=== PATIENT | female | born 1985 | race Caucasian/White ===

== ENCOUNTER 2019-10-15 17:40 | Inpatient (IN) | payer MEDICAID, SELFPAY ==
[2019-10-15] VITALS (97 sets, daily range): BP systolic 0–129; BP diastolic 0–72; PULSE 61–98; RESP 15–18; TEMP 36.6–37; O2SAT 96–99; BMI 25.1
[2019-10-15 08:27] LABS: Basophils % 0.3 %; Eosinophils # 0.1 10^3/uL (0.0-0.8); Eosinophils % 0.6 %; Hematocrit 33.2 % (37.0-47.0); Hemoglobin 11.1 g/dL (11.5-15.3); Lymphocytes # 1.9 10^3/uL (0.8-4.8); Lymphocytes % 15.8 %; Mean Corpuscular HGB Conc 33.4 g/dL (30.0-36.0); Mean Corpuscular Hemoglobin 32.6 pg (28.0-34.0); Mean Corpuscular Volume 97.6 fL (81-99); Mean Platelet Volume 10.6 fL (7.4-10.4); Monocytes % 8.4 %; Neutrophils # 8.6 10^3/uL (1.8-7.7); Nucleated Red Blood Cells % 0 %; Platelet Count 204 10^3/cmm (130-400); Red Cell Distribution Width 13.3 % (12.1-15.1); White Blood Count 11.9 10^3/uL (4.0-10.0)
[2019-10-15] MEDS: oxytocin 30 UNIT/500 ML BAG IV (08:40)
[2019-10-15] MEDS: lactated ringers 1,000 ML 125 ML IV (08:44)
[2019-10-15] MEDS: alum-mag-hydroxide-sime 30 mL UDC PO ×2 (08:44→12:42)
[2019-10-15] MEDS: fentaNYL 50 mcg/mL INJ 2mL IV (11:28)
[2019-10-15] MEDS: lactated ringers 1,000 ML 999 ML IV (11:37)
--- NOTE | 2019-10-15 12:29 | P.ANES_ITS ---
Pre-Anesthetic Assessment Pre-Anesthetic Assessment: Height/Weight: Height 1.75 m Weight 77.111 kg Temp Pulse Resp BP Pulse Ox 98 F 66 16 105/52 99 10/15/19 11:08 10/15/19 12:25 10/15/19 11:28 10/15/19 12:25 10/15/19 12:23 Was Beta Raulito taken within 24 hours: N/A Last Intake: 06:00 Social: Social History: Tobacco and No alcohol Exam: Pre-Anes Outpt Exam: alert, oriented x 3, clear to auscultation bi laterally and regular rate & rhythm Airway: Submandibular: WNL Cervical ROM: WNL MP: 2 Dentition: Full Pulmonary: Pulmonary: None reported CV/HEM: CV/HEM: None reported : : None reported GI: GI: GERD Metabolic: Metabolic: None reported Musc/skel: Musc/skel: None reported Neuropsych: Neuropsych: Bipolar Anesthetic Plan: ASA status: II Anesthesia: Anesthesia Evaluation and Regional (specify below) Risk of > 500 ml blood loss (7ml/kg in children): No Meds/Allergies Current Medications: Current Medications Generic Name Dose Route Start Last Admin Trade Name Freq PRN Reason Stop Dose Admin Al Hydrox/Mg Hecker x/Simethicone 30 ml 10/15/19 07:59 10/15/19 08:44 Maalox PO 30 ml Q4H PRN Administration INDIGESTION Fentanyl 25 - 100 mcg 10/15/19 10:59 10/15/19 11:28 Sublimaze IV 25 mcg Q1H PRN Administration SEVERE PAIN Lactated Ringer's 1,000 mls @ 999 m ls/hr 10/15/19 07:59 10/15/19 10:56 Lactated Ringers IV 999 mls/hr .Q1H1M PRN Infusion Per L&D Rescitati on Protocol Oxytocin 30 unit in 500 ml s @ 1 mls/hr 10/15/19 08:00 10/15/19 10:45 Pitocin IV 17 milliunit/min .Q24H JEANNETTE 17 mls/hr Titration Protocol 1 MILLIUNIT/MIN PFSH Anesthesia Female Reproductive History: : 5 Data Anesthesia CBC & Chem 7: 10/15/19 07:45 Other Labs: Laboratory Results - last 48 hr 10/15/19 07:45 WBC 11.9 H RBC 3.40 L Hgb 11.1 L Hct 33.2 L MCV 97.6 MCH 32.6 MCHC 33.4 RDW 13.3 Plt Count 204 MPV 10.6 H Neut % (Auto) 72.0 Lymph % (Auto) 15.8 [place] % (Auto) 8.4 Eos % (Auto) 0.6 Baso % (Auto) 0.3 Neut # (Auto) 8.6 H Lymph # (Auto) 1.9 [place] # (Auto) 1.0 H Eos # (Auto) 0.1 Baso # (Auto) 0.0 Nucleated RBC % (auto) 0 Nucleated RBCs # 0.0 Cardiac Studies: No Data to Display
--- NOTE | 2019-10-15 12:32 | P.ANES_ITS ---
Anesthesia Procedures Procedure/Date: 10/15/19
--- NOTE | 2019-10-15 12:32 | ANES.PROC ---
Anesthesia Procedures Procedure/Date: 10/15/19
--- NOTE | 2019-10-15 12:32 | ANES.PROC ---
Anesthesia Procedures Procedure/Date: 10/15/19 Epidural: Time Out Performed: Yes Consents Signed: Procedure Consent and NPO Consent Consent: from patient, risks and benefits reviewed and patient agrees to proceed Lumbar Level: L3-L4 Epidural position: sitting Epidural procedure: sterile prep of area, 1% lidocaine to numb the area, 18 g needle, negative for paresthesia passed, neg for paresthesia, test dose given, 1.5% xylocaine 1:200k epi, placed PCEA, no systemic response, sterile dressing applied, L.U.D. no apparent complications and 0.2% Ropiavacaine @ mls/hr Additional Comments: Bupiv 0.25% 8cc and 100 Fentanyl bolus
[2019-10-15] MEDS: dextrose 5%-lactated ringers 1,000 ML 125 ML IV ×2 (12:42→14:50)
--- NOTE | 2019-10-15 13:15 | ANES.PREANES ---
Pre-Anesthetic Assessment Pre-Anesthetic Assessment: Height/Weight: Height 1.75 m Weight 77.111 kg Temp Pulse Resp BP Pulse Ox 98 F 64 16 96/41 98 10/15/19 11:08 10/15/19 13:13 10/15/19 11:28 10/15/19 13:13 10/15/19 12:33 Preop Diagnosis: labor Pain Proposed Procedure: epidural Was Beta Raulito taken within 24 hours: N/A Social: Social History: No alcohol and No tobacco Exam: Pre-Anes Outpt Exam: alert, oriented x 3, clear to auscultation bilaterally and regular rate & rhythm Airway: Submandibular: WNL Cervical ROM: WNL MP: 1 Dentition: Full History/ROS: No significant history except as noted and No significant complaints Pulmonary: Pulmonary: Asthma Comments: slightly worse lately. using inhaler more frequently CV/HEM: CV/HEM: None reported : : None reported Hepatic: Hepatic: None reported GI: GI: None reported Metabolic: Metabolic: None reported Musc/skel: Musc/skel: None reported Neuropsych: Neuropsych: None reported Anesthetic Plan: ASA status: II Anesthesia: Regional (specify below) Other: labor Epidural Risk of > 500 ml blood loss (7ml/kg in children): No Meds/Allergies Current Medications: Current Medications Generic Name Dose Route Start Last Admin Trade Name Freq PRN Reason Stop Dose Admin Al Hydrox/Mg Graham x/Simethicone 30 ml 10/15/19 07:59 10/15/19 12:42 Maalox PO 30 ml Q4H PRN Administration INDIGESTION Fentanyl 25 - 100 mcg 10/15/19 10:59 10/15/19 11:28 Sublimaze IV 25 mcg Q1H PRN Administration SEVERE PAIN Lactated Ringer's 1,000 mls @ 999 m ls/hr 10/15/19 07:59 10/15/19 11:37 Lactated Ringers IV Infused .Q1H1M PRN Infusion Per L&D Rescitati on Protocol Oxytocin 30 unit in 500 ml s @ 1 mls/hr 10/15/19 08:00 10/15/19 10:45 Pitocin IV 17 milliunit/min .Q24H JEANNETTE 17 mls/hr Titration Protocol 1 MILLIUNIT/MIN Dextrose/Lactated Ringer's 1,000 mls @ 125 m ls/hr 10/15/19 08:00 10/15/19 12:42 Dextrose 5%-Lact ated Ringers IV 125 mls/hr .Q8H JEANNETTE Administration PFSH Anesthesia Female Reproductive History: : 5 Data Anesthesia CBC & Chem 7: 10/15/19 07:45 Other Labs: Laboratory Results - last 48 hr 10/15/19 07:45 WBC 11.9 H RBC 3.40 L Hgb 11.1 L Hct 33.2 L MCV 97.6 MCH 32.6 MCHC 33.4 RDW 13.3 Plt Count 204 MPV 10.6 H Neut % (Auto) 72.0 Lymph % (Auto) 15.8 [place] % (Auto) 8.4 Eos % (Auto) 0.6 Baso % (Auto) 0.3 Neut # (Auto) 8.6 H Lymph # (Auto) 1.9 [place] # (Auto) 1.0 H Eos # (Auto) 0.1 Baso # (Auto) 0.0 Nucleated RBC % (auto) 0 Nucleated RBCs # 0.0 Cardiac Studies: No Data to Display
[2019-10-15] MEDS: ePHEDrine 50 mg/mL Inj 10 MG IVP ×3 (13:21→14:01)
--- NOTE | 2019-10-15 14:14 | PC.NURSE ---
Eleno Herrmann CRNA at bedside evaluating blood pressure at this time.
--- NOTE | 2019-10-15 14:35 | PC.NURSE ---
Patient doesn't have custody of her 15 year old daughter. She lives in [place] with her father.
[2019-10-15] MEDS: miSOPROStol 200 mcg Tablet 800 MCG PR (17:47)
--- NOTE | 2019-10-15 18:00 | PM.DELIVERY ---
 Delivery Note: Date of delivery: 10/15/19 Pre-Delivery Course: The patient had routine care at [facility]. She was positive for chlamydia early in the but had later test of cure negative. She was known to be hepatitis B positive RNA 1200Iu/mL. Blood type O+, antibody negative, rubella immune, GBS negative. Delivery: This is a 34-year-old G5, P1 at 40 weeks and 5 days gestation who was admitted for induction secondary to postdates. The patient's cervix was favorable and she was started on Pitocin. She received an epidural for pain management. Her labor progressed rather well. She had spontaneous rupture of membranes with clear fluid noted approximately 6 hours prior to delivery. She had a normal spontaneous vaginal delivery of a viable male infant weight 3700 g, 8 pounds 3 ounces, Apgars 9 and 10. The infant was delivered over an intact perineum. The infant was suctioned at delivery and placed on the mother's chest. The cord was clamped and cut. The placenta was delivered grossly intact and normal to inspection with a large gush of blood following delivery of the placenta. There was a right labial first-degree laceration that was sutured using 3-0 chromic. The patient was given 800 mcg of Cytotec rectally to help with any further bleeding issues. This was also precautionary since she had a history of hemorrhage with her first delivery. A&P Assessment and plan (1) Normal vaginal delivery: Routine care Status: Acute Code(s): O80 - Encounter for full-term uncomplicated delivery (2) Tobacco use complicating : Status: Acute Code(s): O99.330 - Smoking (tobacco) complicating , unspecified trimester (3) Request for sterilization: Patient previously expressed desire to undergo permanent surgical sterilization. She still wishes to have her tubes tied so we will plan for this tomorrow morning. Status: Acute Code(s): Z30.2 - Encounter for sterilization Coding Level of Care Code Acute Parimutuel Ticket Seller for Chg Fwd Diagnoses Normal vaginal delivery O80 Tobacco use complicating O99.330 Request for sterilization Z30.2
[2019-10-15] MEDS: benzocaine-menthol 78 gm Canister 1 SPRAY TOPICAL (20:19)
[2019-10-15] MEDS: lanolin oint 7 gm 1 APPLIC TOPICAL (20:19)
[2019-10-16 01:30] VITALS: BP 106/65; PULSE 76; RESP 18; TEMP 36.8
[2019-10-16] MEDS: alum-mag-hydroxide-sime 30 mL UDC PO (01:49)
[2019-10-16] MEDS: acetaminophen 325 mg Tablet 650 MG PO ×2 (01:49→19:20)
[2019-10-16 03:49] VITALS: BP 94/53; PULSE 75; RESP 18; TEMP 36.8
[2019-10-16 06:34] LABS: Hematocrit 26.1 % (37.0-47.0); Hemoglobin 8.7 g/dL (11.5-15.3); Mean Corpuscular HGB Conc 33.3 g/dL (30.0-36.0); Mean Corpuscular Hemoglobin 31.5 pg (28.0-34.0); Mean Corpuscular Volume 94.6 fL (81-99); Mean Platelet Volume 9.5 fL (7.4-10.4); Platelet Count 189 10^3/cmm (130-400); Red Blood Count 2.76 10^6/uL (4.1-5.3); White Blood Count 14.4 10^3/uL (4.0-10.0)
[2019-10-16 07:33] VITALS: BP 101/65; PULSE 66; RESP 16; TEMP 36.5
[2019-10-16 11:25] VITALS: BP 101/61; PULSE 79; RESP 16; TEMP 36.8
[2019-10-16] MEDS: citric acid-sodium citrate 30 mL UDC PO (11:42)
[2019-10-16] MEDS: metoclopramide 5 mg/mL SDV 2 mL 10 MG IVP (11:42)
[2019-10-16] MEDS: famotidine 20 mg/2 mL INJ IVP (11:42)
--- NOTE | 2019-10-16 11:48 | PC.NURSE ---
Patient taken downstairs to OR via gurney.
[2019-10-16 11:53] VITALS: BP 106/47; PULSE 88; RESP 18; TEMP 37; O2SAT 97
--- NOTE | 2019-10-16 12:47 | P.DS_ITS ---
Discharge Providers PASTEURISER OPERATOR Date of Admission: 10/15/19 17:40 Date of Discharge: 10/16/19 Attending Provider at Admission: Manda Contreras MD Attending Provider at Discharge: Manda Contreras MD Diagnoses at Discharge Discharge Diagnosis (1) Normal vaginal delivery: Status: Acute (2) Tobacco use complicating : Status: Acute (3) Request for sterilization: Status: Acute Problem details: Patient was done in preop holding area when she had a panic attack and decided against tubal ligation. Reason for Visit Reason for Visit: Reason For Visit: LABOR Hospital Course Discharge Summary: This is a 34-year-old G5, P2 who had a normal spontaneous vaginal delivery of a viable male infant. She did well . On day #1 she was ambulating, tolerating a regular diet, had average vaginal bleeding and was comfortable with discharge home. Information Peripartum Data: Infant Delivery Method: Vaginal Physical Exam Const: COMMON NORMALS: no apparent distress GENERAL APPEARANCE: cooperative HENMT: COMMON NORMALS: normocephalic HEAD & SCALP: normocephalic Chest: CHEST: Yes abnormal inspection of the chest Resp: COMMON NORMALS: normal respiratory effort Cardio: COMMON NORMALS: regular rate and regular rhythm RATE: regular rate RHYTHM: regular rhythm GI: COMMON NORMALS: soft to palpation PALPATION: Yes soft, Yes firm (Fundus firm and U- 3), No tender and No guarding Extremity: COMMON NORMALS: negative for no calf tenderness and negative for no pedal edema Urinary Catheter Management^: [place] Latex Free: Cath Placed During This Visit: no Discharge Data Data Completed and Pending: Labs from last 24 hours 10/16/19 06:23 WBC 14.4 H RBC 2.76 L Hgb 8.7 L Hct 26.1 L MCV 94.6 MCH 31.5 MCHC 33.3 RDW 13.0 Plt Count 189 MPV 9.5 Vitals: Last Vital Signs Temp 98.6 F 10/16/19 11:53 Pulse 88 10/16/19 11:53 Resp 18 10/16/19 11:53 BP 106/47 10/16/19 11:53 Pulse Ox 97 10/16/19 11:53 Discharge Plan Discharge Patient Disposition: Home, Self-Care Condition: Stable Prescriptions: Discontinued 28-800 mg-mcg Tablet 1 tab PO RF: 0 Referrals: Manda Contreras MD [Physician] - 1 month Discharge Diet: Usual diet Discharge Activity: Limit activity as instructed Discharge Attestations PASTEURISER OPERATOR Time Spent in Discharge Care*: less than 30 min Coding Level of Care Code Acute Lead Java Software Engineer for Chg Fwd Diagnoses Normal vaginal delivery O80 Tobacco use complicating O99.330 Request for sterilization Z30.2
--- NOTE | 2019-10-16 14:02 | SUR.PREOP ---
patient presented in OPS for prep for post tubal ligation. patient reported she was feeling very anxious, started crying and stated she doesnt want to do the tubal. patient was returned to OB department.
[2019-10-16 17:25] VITALS: BP 90/50; PULSE 84; RESP 16; TEMP 36.9; O2SAT 94
== END 2019-10-16 20:30 | disposition home or self-care (01) | DRG 807 ==
PROVIDERS: Admitting Provider Family Medicine; Family Provider Family Medicine; Visit Provider Family Medicine
PROC: (CPT 58605; principal; 2019-10-16 12:00)
DX: O48.0 Post-term pregnancy (principal); Z37.0 Single live birth; Z3A.40 40 weeks gestation of pregnancy; O70.0 First degree perineal laceration during delivery; O99.333 Smoking (tobacco) complicating pregnancy, third trimester; F17.210 Nicotine dependence, cigarettes, uncomplicated; Z53.09 Procedure and treatment not carried out because of other contraindication; F41.0 Panic disorder [episodic paroxysmal anxiety]
CPT/HCPCS: 12345; 36415; 51702; 59409; 85025; 85027; 90686; 96360; 96361; 96372; 96375; J2765; J2795; J3010; J3490